=== PATIENT | female | born 1995 | race Caucasian/White ===

== ENCOUNTER 2023-04-07 10:13 | Emergency (ER) | payer OTHER, SELFPAY ==
[2023-04-07] MEDS ORDERED: Fluorescein Opthalmic Strip ONE (10:40)
[2023-04-07] MEDS ORDERED: Tetracaine 0.5% PF 4 ML BOT ONE (10:40)
== END 2023-04-07 11:23 | disposition home or self-care (01) ==
LOC: MADERS 10:13
DX: S05.01XA Injury of conjunctiva and corneal abrasion without foreign body, right eye, initial encounter (principal); J20.9 Acute bronchitis, unspecified; W45.8XXA Other foreign body or object entering through skin, initial encounter
CPT/HCPCS: 99283